=== PATIENT | female | born 1995 | race Caucasian/White ===

== ENCOUNTER 2017-10-11 18:37 | Emergency (ER) | payer BC ==
[~2017-10-11] VITALS: Ht 165.1 cm; Wt 70.0 kg
[2017-10-11 18:42] VITALS: BP 125/87
== END 2017-10-11 19:57 | disposition home or self-care (01) ==
LOC: ED 19:02
DX: S09.90XA Unspecified injury of head, initial encounter (principal); Z88.0 Allergy status to penicillin; W01.0XXA Fall on same level from slipping, tripping and stumbling without subsequent striking against object, initial encounter; Y93.31 Activity, mountain climbing, rock climbing and wall climbing; Y92.828 Other wilderness area as the place of occurrence of the external cause; Y99.8 Other external cause status
CPT/HCPCS: 99281